=== PATIENT | male | born 1990 | race Two or more races ===

== ENCOUNTER 2019-06-04 15:39 | Emergency (ER) | payer OTHER ==
[~2019-06-04] VITALS: Ht 175.3 cm; Wt 57.6 kg
[2019-06-04 16:00] LABS: BASOPHILS # (AUTO) 0.1 (0.0-0.1); EOSINOPHILS # (AUTO) 0.1 (0.0-0.4); HEMATOCRIT 45.7 % (38.2-49.6); HEMOGLOBIN 14.9 g/dL (14.0-18.0); LYMPHOCYTES # (AUTO) 1.8 (1.0-3.2); LYMPHOCYTES % 22.3 % (18.0-39.1); MEAN CORPUSCULAR HEMOGLOBIN 29.2 pg (28-32); MEAN CORPUSCULAR HGB CONC 32.6 g/dL (31-35); MEAN CORPUSCULAR VOLUME 89.4 fL (81-99); MONOCYTES # (AUTO) 0.7 (0.2-0.8); MONOCYTES % 8.8 % (4.4-11.3); NEUTROPHILS # (AUTO) 5.5 (2.1-6.9); NEUTROPHILS % 66.5 % (38.7-80.0); PLATELET COUNT 285 x10e3/uL (140-360); RED BLOOD COUNT 5.11 x10e6/uL (4.3-5.7); RED CELL DISTRIBUTION WIDTH 12.8 % (11.7-14.4)
[2019-06-04 16:16] LABS: ALANINE AMINOTRANSFERASE 59 IU/L (0-55); ALBUMIN 4.4 g/dL (3.5-5.0); ALBUMIN/GLOBULIN RATIO 1.4 (0.8-2.0); ALKALINE PHOSPHATASE 87 IU/L (40-150); ANION GAP 11.2 mmol/L (8-16); BLOOD UREA NITROGEN 14 mg/dL (7-26); BUN/CREATININE RATIO 16 (6-25); CALCIUM 9.2 mg/dL (8.4-10.2); CARBON DIOXIDE 27 mmol/L (22-29); CHLORIDE 104 mmol/L (98-107); CREATININE, SERUM 0.86 mg/dL (0.72-1.25); EST GLOMERULAR FILTRATION RATE > 60 ML/MIN (60-); GLUCOSE 117 mg/dL (74-118); POTASSIUM 4.2 mmol/L (3.5-5.1); SODIUM 138 mmol/L (136-145)
--- NOTE | 2019-06-04 16:59 | Diagnostic Imaging Report ---
Exam: Chest radiograph Clinical History: Chest pain Findings: The cardiomediastinal silhouette and lungs are normal. The regional skeleton and soft tissue are unremarkable. There is no evidence of pleural effusion or pneumothorax. Impression: No radiographic evidence of acute cardiopulmonary disease. Signed by: Dr. Chema Saleem MD on 06/04/2019 4:57 PM
[2019-06-04] MEDS ORDERED: TRAMADOL HCL 50 MG TAB PO ONE (18:00)
[2019-06-04] MEDS ORDERED: CYCLOBENZAPRINE HCL 10 MG TAB PO ONE (18:00)
--- NOTE | 2019-06-04 18:09 | Diagnostic Imaging Report ---
Exam: Left rib series Clinical history: Left rib pain Findings: There is no evidence of acute fracture or malalignment of the visualized osseous structures. The cardiac size is within normal limits. There is no evidence of pulmonary consolidation, pleural effusion, or pneumothorax. Impression: 1. No radiographic evidence of acute osseous injury. Signed by: Dr. Chema Saleem MD on 06/04/2019 6:06 PM
== END 2019-06-04 18:28 | disposition home or self-care (01) ==
LOC: ER 15:39
DX: S20.212A Contusion of left front wall of thorax, initial encounter (principal); R07.89 Other chest pain; W22.8XXA Striking against or struck by other objects, initial encounter
CPT/HCPCS: 36415; 71046; 71101; 80053; 84484; 85025; 93005; 99284